=== PATIENT | female | born 1985 | race Caucasian/White ===

== ENCOUNTER 2019-05-09 15:30 | Inpatient (IN) | payer OTHER ==
[~2019-05-09] VITALS: Ht 157.5 cm; Wt 185.0 kg
[2019-05-26] MEDS ORDERED: PRENATABS RX T1 EACH PO (18:05)
== END 2019-05-28 10:44 | disposition home or self-care (01) | DRG 807 ==
LOC: OB/GYN 05-26 15:47 → LDR 05-26 15:47 → OB/GYN 05-27 02:37
PROVIDERS: ADMIT Obstetrics & Gynecology
PROC: 10E0XZZ Delivery of Products of Conception, External Approach (ICD-10-PCS; principal; 2019-05-26)
PROC: 4A0HXFZ Measurement of Products of Conception, Cardiac Rhythm, External Approach (ICD-10-PCS; 2019-05-26)
DX: O80 Encounter for full-term uncomplicated delivery (principal); Z37.0 Single live birth; Z3A.38 38 weeks gestation of pregnancy

== ENCOUNTER 2019-05-24 12:37 | Outpatient (CLI) | payer OTHER | END 2019-05-24 13:42 | disposition home or self-care (01) | LOC: NST 12:37 | DX: Z34.83 Encounter for supervision of other normal pregnancy, third trimester (principal) ==

== ENCOUNTER 2019-05-26 14:24 | Outpatient (CLI) | payer OTHER ==
[2019-05-26] MEDS ORDERED: PRENATABS RX T1 EACH PO (18:05)
== END 2019-05-26 15:40 | disposition still patient (30) ==
LOC: OBS/DEL 14:24
DX: O47.1 False labor at or after 37 completed weeks of gestation (principal); Z34.03 Encounter for supervision of normal first pregnancy, third trimester

== ENCOUNTER 2023-12-02 11:46 | Inpatient (IN) | payer OTHER ==
[~2023-12-02] VITALS: Ht 157.5 cm; Wt 73.5 kg
[~2023-12-02 11:46] MED LIST: PRENATABS RX T1 EACH PO
[2023-12-13] MEDS ORDERED: RINGERS SOLUTION,LACTATED 1,000 ML IV SCH (02:15)
[2023-12-13 02:37] LABS: HEMATOCRIT 36.9 % (36.0-45.00); HEMOGLOBIN 12.2 g/dL (12.0-15.00); MEAN CELL VOLUME 89.3 fL (80.00-100.00); MEAN CORPUSCULAR HEMOGLOBIN 29.6 pg (27.00-32.0); MEAN CORPUSCULAR HGB CONC 33.1 g/dl (32.0-36.0); PLATELET COUNT 145 K/uL (150-450); RED BLOOD COUNT 4.14 M/uL (4.00-6.00)
[2023-12-13 02:48] LABS: URINE APPEARANCE CLOUDY; URINE COLOR YELLOW; URINE GLUCOSE NEGATIVE (NEGATIVE)
[2023-12-13 02:51] LABS: URINE BILIRRUBIN NEGATIVE (NEGATIVE)
[2023-12-13 02:52] LABS: URINE BLOOD MODERATE; URINE LEUKOCYTE TRACE; URINE NITRATE NEGATIVE; URINE PROTEIN NEGATIVE (NEGATIVE); URINE RBC 243.5 uL (0.0-20.8); URINE UROBILINOGEN 0.2 E.U./dl; URINE WBC 110.3 uL (0.0-23.2)
[2023-12-13 02:53] LABS: URINE BACTERIA 361.5 uL (0.0-1933); URINE EPITHELIAL CELLS 66.7 uL (0.0-38.8)
[2023-12-13 02:55] LABS: INR < 0.93; PARTIAL THROMBOPLASTIN TIME 25.4 SECONDS (22.0-34.0); PROTHROMBIN TIME 9.8 SECONDS (9.0-11.5)
[2023-12-13 02:59] LABS: ALBUMIN 2.9 gm/dL (3.4-5.0); BILIRUBIN TOTAL 0.26 mg/dL (0.3-1.2); GFR 169.77; GLOBULINA 3.6 G/DL (2.4-3.5); POTASSIUM 3.69 mEq/L (3.5-5.1); TOTAL PROTEIN 6.5 gm/dL (6.4-8.2)
[2023-12-13 03:13] LABS: CREATININE SERUM 0.42 mg/dL (0.55-1.02)
[2023-12-13] MEDS ORDERED: OXYTOCIN 1,000 ML IV ONE (03:45)
[2023-12-13] MEDS ORDERED: CHLORHEXIDINE GLUCONATE 120 ML BOTTLE TOP SCH (03:45)
[2023-12-13] MEDS ORDERED: IBUprofen 400 MG TABLET PO PRN (03:45)
[2023-12-13] MEDS ORDERED: LIDOCAINE HCL 1% 200MG/20ML VIAL IJ SCH (03:45)
[2023-12-13] MEDS ORDERED: ERYTHROMYCIN BASE 1 GM TUBE OP SCH (03:45)
[2023-12-13] MEDS ORDERED: DOCUSATE SODIUM 100MG CAP PO SCH (09:00)
[2023-12-13] MEDS ORDERED: PNV,CALCIUM 72/IRON/FOLIC ACID 1 TAB TABLET PO SCH (09:00)
[2023-12-13 18:01] LABS: HEMATOCRIT 35.5 % (36.0-45.00); HEMOGLOBIN 11.7 g/dL (12.0-15.00); MEAN CELL VOLUME 91.1 fL (80.00-100.00); MEAN CORPUSCULAR HGB CONC 32.9 g/dl (32.0-36.0); PLATELET COUNT 145 K/uL (150-450); RED CELL DISTRIBUTION WIDTH 14.3 % (11.5-14.5)
== END 2023-12-15 13:07 | disposition home or self-care (01) | DRG 807 ==
LOC: OB/GYN 12-13 02:08 → LDR 12-13 02:08 → OB/GYN 12-13 05:12 → SURG 12-26 11:44
PROVIDERS: Obstetrics & Gynecology Gynecology; ADMIT Obstetrics & Gynecology; ATTEND Obstetrics & Gynecology
PROC: 10E0XZZ Delivery of Products of Conception, External Approach (ICD-10-PCS; principal; 2023-12-13)
PROC: 0UQMXZZ Repair Vulva, External Approach (ICD-10-PCS; 2023-12-13)
PROC: 4A1HXCZ Monitoring of Products of Conception, Cardiac Rate, External Approach (ICD-10-PCS; 2023-12-13)
DX: O70.0 First degree perineal laceration during delivery (principal); Z37.0 Single live birth; Z3A.38 38 weeks gestation of pregnancy; Z20.822 Contact with and (suspected) exposure to COVID-19